=== PATIENT | male | born 1990 | race African-American/Black ===

== ENCOUNTER 2020-05-02 09:27 | Emergency (ER) | payer MEDICAID ==
[~2020-05-02] VITALS: Ht 182.9 cm; Wt 131.5 kg
[2020-05-02 09:35] VITALS: BP 142/83
--- NOTE | 2020-05-02 09:38 | NUR ---
RECEIVED A 30/M FROM TRIAGE WITH A REQUEST FOR MEDICAL EVALUATION S/P HAVING A WITNESSED SEIZURE 3 DAYS AGO. PT DENIES ANY MEDICAL COMPLAINT AT THIS TIME. IN BED FOR MSE.
--- NOTE | 2020-05-02 09:59 | NUR ---
TO CT VIA [facility]
--- NOTE | 2020-05-02 10:05 | NUR ---
RETURN FROM CT
[2020-05-02 10:42] LABS: BASOPHILS % (AUTO) 0.8 % (0.0-2.0); EOSINOPHILS % (AUTO) 0.9 % (0.0-4.0); HEMATOCRIT 38.1 % (36-52); HEMOGLOBIN 12.1 g/dL (12.0-18.0); LYMPHOCYTES % (AUTO) 19.9 % (20.5-51.1); MEAN CORPUSCULAR HEMOGLOBIN 27 pg (27-31); MEAN CORPUSCULAR HGB CONC 32 g/dL (33-37); MEAN CORPUSCULAR VOLUME 83.4 fL (80-94); MONOCYTES # (AUTO) 0.7 K/uL (0.8-1.0); MONOCYTES % (AUTO) 14.6 % (1.7-9.3); NEUTROPHILS # (AUTO) 3.3 K/uL (1.8-7.7); NEUTROPHILS % (AUTO) 63.8 % (42.2-75.2); PLATELET COUNT (AUTO) 178 K/uL (140-450); RED BLOOD CELL COUNT(AUTO) 4.57 MIL/uL (4.20-6.10); WHITE BLOOD COUNT (AUTO) 5.1 K/uL (4.8-10.8)
[2020-05-02 11:13] LABS: ALBUMIN 3.5 g/dL (3.4-5.0); ASPARTATE AMINOTRANSFERASE 214 U/L (15-37); CARBON DIOXIDE 29.5 mmol/L (21-32); CHLORIDE 103 mmol/L (98-107); CREATININE 0.7 mg/dL (0.6-1.3); GFR ARICAN-AMERICAN 173 mL/min (>90); GLUCOSE 90 mg/dL (74-106); POTASSIUM 3.5 mmol/L (3.5-5.1); SODIUM SERUM 140 mmol/L (136-145); TOTAL BILIRUBIN 0.6 mg/dL (0.0-1.0); UREA NITROGEN, BLOOD 8 mg/dL (7-18)
--- NOTE | 2020-05-02 11:15 | NUR ---
REMAINS IN BED ATTATCHED TO [employer]. NO SEIZURE ACTIVITY NOTED. SZ PRECAUTIONS REMAIN IN PLACE.
[2020-05-02 11:28] VITALS: BP 135/82
--- NOTE | 2020-05-02 11:28 | NUR ---
Patient discharged with v/s stable. Written and verbal after care instructions given and explained. Patient verbalized understanding. Ambulatory with steady gait. All questions addressed prior to discharge. Advised to follow up with PMD.
== END 2020-05-02 11:28 | disposition home or self-care (01) ==
LOC: MED 09:27
DX: R56.9 Unspecified convulsions (principal); R79.89 Other specified abnormal findings of blood chemistry; F10.10 Alcohol abuse, uncomplicated; R11.0 Nausea; R25.1 Tremor, unspecified
CPT/HCPCS: 36415; 70450; 80053; 85025; 99284; G0482